=== PATIENT | male | born 2000 | race Two or more races ===

== ENCOUNTER 2020-03-15 21:04 | Emergency (ER) | payer OTHER ==
[~2020-03-15] VITALS: Ht 180.3 cm; Wt 83.9 kg
[2020-03-15 21:39] VITALS: BP 139/88
[2020-03-15] MEDS ORDERED: KETOROLAC TROMETH 60MG/2ML VIAL IM ONE (23:45)
== END 2020-03-16 00:22 | disposition home or self-care (01) ==
LOC: ER 21:05
DX: S13.9XXA Sprain of joints and ligaments of unspecified parts of neck, initial encounter (principal); V29.9XXA Motorcycle rider (driver) (passenger) injured in unspecified traffic accident, initial encounter; Y93.55 Activity, bike riding; Y92.410 Unspecified street and highway as the place of occurrence of the external cause; Y99.8 Other external cause status
CPT/HCPCS: 70450; 71250; 72125; 96372; 99285; J1885